=== PATIENT | female | born 1985 | race Caucasian/White ===

== ENCOUNTER 2018-09-06 17:42 | Emergency (ER) | payer SELFPAY ==
[~2018-09-06] VITALS: Ht 167.6 cm; Wt 75.0 kg
[2018-09-06] MEDS ORDERED: ALBUTEROL SULFATE 2.5 MG/3 ML ONE (17:56)
[2018-09-06 19:00] VITALS: BP 141/97
[2018-09-06] MEDS ORDERED: ALBUTEROL/IPRATROPIUM 2.5MG/0.5MG, 3 ML NPPB SCH (19:30)
[2018-09-06] MEDS ORDERED: ALBUTEROL/IPRATROPIUM 2.5MG/0.5MG, 3 ML ONE (19:56)
== END 2018-09-06 20:59 | disposition home or self-care (01) ==
LOC: ED 18:38
DX: J45.41 Moderate persistent asthma with (acute) exacerbation (principal); Z87.891 Personal history of nicotine dependence
CPT/HCPCS: 71045; 93005; 94640; 99284; J7512; J7620